=== PATIENT | male | born 1945 | race Caucasian/White ===

== ENCOUNTER 2021-07-06 08:08 | Day surgery (SDC) | payer MEDICARE, BC ==
[~2021-07-06 08:08] MED LIST: Lactated Ringers 1,000 ML IV SCH
[2021-07-06] MEDS ORDERED: fentaNYL 100 MCG/2 ML SDV ONE (09:16)
[2021-07-06] MEDS ORDERED: Propofol 200 MG/20 ML SDV ONE ×2 (09:16→10:35)
== END 2021-07-06 11:45 | disposition home or self-care (01) ==
LOC: VM.SDS 08:08
PROVIDERS: ATTEND Surgery
DX: Z12.11 Encounter for screening for malignant neoplasm of colon (principal); D12.6 Benign neoplasm of colon, unspecified; E11.42 Type 2 diabetes mellitus with diabetic polyneuropathy; E78.5 Hyperlipidemia, unspecified; E11.69 Type 2 diabetes mellitus with other specified complication; E11.22 Type 2 diabetes mellitus with diabetic chronic kidney disease; I12.9 Hypertensive chronic kidney disease with stage 1 through stage 4 chronic kidney disease, or unspecified chronic kidney disease; N18.30 Chronic kidney disease, stage 3 unspecified; E66.09 Other obesity due to excess calories; M17.0 Bilateral primary osteoarthritis of knee; Z79.899 Other long term (current) drug therapy; Z98.890 Other specified postprocedural states; Z79.4 Long term (current) use of insulin; Z68.38 Body mass index [BMI] 38.0-38.9, adult; Z79.84 Long term (current) use of oral hypoglycemic drugs
CPT/HCPCS: 00811; 82947; 88305; J2704; J3010; J7120